=== PATIENT | female | born 1960 | race Caucasian/White ===

== ENCOUNTER 2016-11-10 05:11 | Inpatient (IN) | payer MEDICARE ==
[2016-11-10] VITALS (8 sets, daily range): BP systolic 102–131; BP diastolic 61–82
[~2016-11-10] VITALS: Ht 165.1 cm; Wt 73.5 kg
[~2016-11-10 05:11] MED LIST: ACETAMIN500 M2 PO; AMBIEN10 MG PO; AMBIEN5 MG PO; AMLODIPINE5 MG PO; AMOXICILLIN500 MG PO; ATORVASTATIN CA10 MG PO; BIAXIN500 M1 PO; BUFFERIN LOW81 MG PO; FLEXERIL PO; FLEXERIL10 MG PO; GABAPENTIN300 MG PO; HYDROCHLOROT12.5 MG PO; HYDROCO/APAP1 TA9 PO; LIPITOR10 MG PO; LORTAB 1010 MG PO; MOTRIN200 M1 OR; MOTRIN200 MG PO; NEURONTIN300 MG PO; NORVASC5 MG PO; PAROXETINE10 MG PO; PAROXETINE20 MG PO; PERCOCET 5/325M1 TAB PO; PERCOCET1 TA2 PO; PERCOCET1 TA4 PO; PREVPAC PO; PRILOSEC20 MG/CAP PO; ZANAFLEX4 M2 PO; ZANAFLEX4 MG PO
[2016-11-10] MEDS ORDERED: ALPRAZOLAM1 MG PO (05:24)
[2016-11-10] MEDS ORDERED: OXYCODONE15 MG PO (05:25)
[2016-11-10 05:53] LABS: HEMATOCRIT 46.4 % (37.0-47.0); HEMOGLOBIN 15.1 g/dl (12.0-16.0); IMMATURE GRANULOCYTES 0.3 % (0.0-1.0); MEAN CELL VOLUME 101.1 fL CALC (80.0-100.0); MEAN CORPUSCULAR HGB 32.9 pG CALC (26.0-32.0); MEAN CORPUSCULAR HGB CONC 32.5 g/L CALC (32.0-36.0); NEUT# 9.6 thou/uL (2.00-7.15); RED BLOOD COUNT 4.59 mill/uL (4.20-5.60); RED CELL DISTRI WIDTH 12.5 % (11.5-15.5)
[2016-11-10 06:03] LABS: ALBUMIN 4.2 g/dL (3.2-5.0); ALKALINE PHOSPHATASE 86 u/l (38-126); ANION GAP 14 (6-22 (CALC)); BILIRUBIN, TOTAL 0.4 mg/dL (0.0-1.4); BUN 7 mg/dL (7-17); BUN/CREATININE RATIO 10 (12-20 (CALC)); CALCIUM 8.9 mg/dL (8.4-10.2); CARBON DIOXIDE 32 mmol/l (22-30); CHLORIDE 103 mmol/l (95-108); CREATININE 0.7 mg/dL (0.5-1.0); GFR > 60 ML/MIN (>=60 (CALC)); GFR FOR AFR.AMER. > 60 ML/MIN (>=60 (CALC)); GLUCOSE 149 mg/dL (65-105); POTASSIUM 4.1 mmol/l (3.5-5.1); SGOT/AST 45 u/l (14-36); SGPT/ALT 33 u/l (9-52); SODIUM 145 mmol/l (137-146); TOTAL PROTEIN 7.3 g/dL (6.3-8.2)
[2016-11-10 06:22] LABS: MYOGLOBIN 1481 ng/mL (0 - 62)
[2016-11-10 07:42] LABS: URINE BILIRUBIN - DIPSTICK NEGATIVE (NEGATIVE); URINE BLOOD DIPSTICK NEGATIVE (NEGATIVE); URINE CLARITY CLEAR; URINE COLOR YELLOW; URINE GLUCOSE - DIPSTICK NEGATIVE (NEGATIVE); URINE KETONE NEGATIVE (NEGATIVE); URINE LEUK ESTERASE NEGATIVE (NEGATIVE); URINE NITRITE - DIPSTICK NEGATIVE (Negative); URINE PH 5.5 (4.5-8.0); URINE PROTEIN - DIPSTICK NEGATIVE (NEG-TRACE); URINE UROBILINOGEN - DIPSTICK 0.2 E.U./dL (0.2)
[2016-11-10 07:46] LABS: BARBITURATES NEGATIVE (NEGATIVE); COCAINE NEGATIVE (NEGATIVE); METHADONE NEGATIVE (NEGATIVE); OXCYCODONE POSITIVE (NEGATIVE); TETRAHYDROCANNABIONOL NEGATIVE (NEGATIVE); TRICYLIC ANTIDEPRESSANTS NEGATIVE (NEGATIVE)
[2016-11-10] MEDS ORDERED: ZYRTEC10 MG PO (07:54)
[2016-11-10] MEDS ORDERED: AUGMENTIN875TAB PO (12:28)
[2016-11-10] MEDS ORDERED: MEDDOSEPAK PO (12:28)
== END 2016-11-10 14:15 | disposition home or self-care (01) | DRG 91 ==
LOC: ED 05:11 → ED-I 07:45 → ED 07:59 → ICU 08:00
PROVIDERS: Emergency Medicine; Family Medicine; ADMIT Internal Medicine; ATTEND Internal Medicine
PROC: 5A09357 Assistance with Respiratory Ventilation, Less than 24 Consecutive Hours, Continuous Positive Airway Pressure (ICD-10-PCS; principal; 2016-11-10)
DX: G92 Toxic encephalopathy (principal); J96.02 Acute respiratory failure with hypercapnia; T45.0X5A Adverse effect of antiallergic and antiemetic drugs, initial encounter; G62.9 Polyneuropathy, unspecified; I10 Essential (primary) hypertension; M54.30 Sciatica, unspecified side; F41.1 Generalized anxiety disorder; M15.9 Polyosteoarthritis, unspecified; E78.5 Hyperlipidemia, unspecified; F17.210 Nicotine dependence, cigarettes, uncomplicated; G89.4 Chronic pain syndrome; J01.00 Acute maxillary sinusitis, unspecified; Y92.009 Unspecified place in unspecified non-institutional (private) residence as the place of occurrence of the external cause

== ENCOUNTER 2018-06-14 21:07 | Observation (INO) | payer MEDICARE ==
[~2018-06-14] VITALS: Ht 170.2 cm; Wt 77.5 kg
[~2018-06-14 21:07] MED LIST changes: +ALPRAZOLAM1 MG PO; +AUGMENTIN875TAB PO; +MEDDOSEPAK PO; +OXYCODONE15 MG PO; +ZYRTEC10 MG PO
[2018-06-14] MEDS ORDERED: TRAZODONE50 MG PO (21:21)
[2018-06-14 21:48] LABS: URINE BILIRUBIN - DIPSTICK NEGATIVE (NEGATIVE); URINE BLOOD DIPSTICK NEGATIVE (NEGATIVE); URINE COLOR YELLOW; URINE GLUCOSE - DIPSTICK NEGATIVE (NEGATIVE); URINE KETONE NEGATIVE (NEGATIVE); URINE LEUK ESTERASE NEGATIVE (NEGATIVE); URINE NITRITE - DIPSTICK NEGATIVE (Negative); URINE PH 5.5 (4.5-8.0); URINE PROTEIN - DIPSTICK NEGATIVE (NEG-TRACE); URINE SPECIFIC GRAVITY <=1.005; URINE UROBILINOGEN - DIPSTICK 0.2 E.U./dL (0.2)
[2018-06-14 21:49] LABS: HEMATOCRIT 42.9 % (37.0-47.0); HEMOGLOBIN 14.2 g/dl (12.0-16.0); IMMATURE GRANULOCYTES 0.4 % (0.0-5.0); MEAN CELL VOLUME 100.5 fL CALC (80.0-100.0); MEAN CORPUSCULAR HGB 33.3 pG CALC (26.0-32.0); MEAN CORPUSCULAR HGB CONC 33.1 g/L CALC (32.0-36.0); NEUT# 4.12 thou/uL (2.00-7.15); RED BLOOD COUNT 4.27 mill/uL (4.20-5.60); RED CELL DISTRI WIDTH 12.7 % (11.5-15.5)
[2018-06-14 22:05] LABS: ALBUMIN 4.1 g/dL (3.2-5.0); ALKALINE PHOSPHATASE 69 u/l (38-126); ANION GAP 13 (6-22 (CALC)); BUN 11 mg/dL (7-17); BUN/CREATININE RATIO 13 (12-20 (CALC)); CARBON DIOXIDE 28 mmol/l (22-30); CHLORIDE 100 mmol/l (95-108); CREATININE 0.9 mg/dL (0.5-1.0); GFR > 60 ML/MIN (>=60 (CALC)); GFR FOR AFR.AMER. > 60 ML/MIN (>=60 (CALC)); POTASSIUM 4.1 mmol/l (3.5-5.1); SGOT/AST 23 u/l (14-36); SODIUM 138 mmol/l (137-146); TOTAL PROTEIN 6.4 g/dL (6.3-8.2)
[2018-06-14 22:06] LABS: ACT PARTIAL THROMBO TIME 24.7 SECONDS (20.0-32.5); INTERNATIONAL NORMALIZED RATIO 0.9 RATIO (0.7-1.3); PROTHROMBIN TIME 9.8 SECONDS (9.0-12.5)
[2018-06-14 22:08] LABS: BILIRUBIN, TOTAL 0.2 mg/dL (0.0-1.4)
[2018-06-14 22:17] LABS: MYOGLOBIN 17 ng/mL (0 - 62)
[2018-06-15 01:00] VITALS: BP 111/74
[2018-06-15 03:00] VITALS: BP 101/80
[2018-06-15 05:00] VITALS: BP 107/71
[2018-06-15 07:31] VITALS: BP 109/77
[2018-06-15 08:00] VITALS: BP 110/76
== END 2018-06-15 10:55 | disposition home or self-care (01) ==
LOC: ED 21:07 → ED-I 21:30 → ED 06-15 00:27 → ICU 06-15 00:28
PROVIDERS: Emergency Medicine; ADMIT Internal Medicine Nephrology; ATTEND Internal Medicine Nephrology
DX: R07.89 Other chest pain (principal); I10 Essential (primary) hypertension; E78.5 Hyperlipidemia, unspecified; G62.9 Polyneuropathy, unspecified; F41.1 Generalized anxiety disorder; F32.9 Major depressive disorder, single episode, unspecified; M54.30 Sciatica, unspecified side; M48.00 Spinal stenosis, site unspecified; F17.210 Nicotine dependence, cigarettes, uncomplicated; Z96.651 Presence of right artificial knee joint; R61 Generalized hyperhidrosis

== ENCOUNTER 2021-01-27 12:36 | Observation (INO) | payer MEDICARE ==
[~2021-01-27] VITALS: Ht 170.2 cm; Wt 54.0 kg
[~2021-01-27 12:36] MED LIST changes: +OXYCODONE10 M1 PO; -OXYCODONE15 MG PO; +TRAZODONE50 MG PO
[2021-01-27 13:25] LABS: HEMATOCRIT 44.3 % (37.0-47.0); HEMOGLOBIN 14.3 g/dl (12.0-16.0); IMMATURE GRANULOCYTES 0.1 % (0.0-5.0); MEAN CELL VOLUME 101.1 fL CALC (80.0-100.0); MEAN CORPUSCULAR HGB 32.6 pG CALC (26.0-32.0); MEAN CORPUSCULAR HGB CONC 32.3 g/dL CAL (32.0-36.0); NEUT# 4.53 thou/uL (2.00-7.15); RED BLOOD COUNT 4.38 mill/uL (4.20-5.60); RED CELL DISTRI WIDTH 12.7 % (11.5-15.5)
[2021-01-27 13:42] LABS: ALKALINE PHOSPHATASE 79 u/l (38-126); AMYLASE 54 u/l (30-110); ANION GAP 10 (6-22 (CALC)); BUN 7 mg/dL (8-23); BUN/CREATININE RATIO 10 (12-20 (CALC)); CARBON DIOXIDE 27 mmol/l (22-30); CHLORIDE 103 mmol/l (95-108); CREATININE 0.8 mg/dL (0.5-1.0); D-DIMER 0.55 mg/L (0.19-0.60); GFR > 60 ML/MIN (>=60 (CALC)); GFR FOR AFR.AMER. > 60 ML/MIN (>=60 (CALC)); LIPASE 30 u/l (23-300); POTASSIUM 3.5 mmol/l (3.5-5.1); SGOT/AST 22 u/l (9-36); SODIUM 137 mmol/l (137-146); TOTAL PROTEIN 7.3 g/dL (6.3-8.2)
[2021-01-27 13:45] LABS: ACT PARTIAL THROMBO TIME 22.8 SECONDS (20.0-32.5); PROTHROMBIN TIME 10.4 SECONDS (9.0-12.5)
[2021-01-27 13:45] LABS: URINE BILIRUBIN - DIPSTICK NEGATIVE (NEGATIVE); URINE BLOOD DIPSTICK NEGATIVE (NEGATIVE); URINE COLOR YELLOW; URINE GLUCOSE - DIPSTICK NEGATIVE (NEGATIVE); URINE KETONE 15 mg/dL (NEGATIVE); URINE LEUK ESTERASE TRACE (NEGATIVE); URINE PROTEIN - DIPSTICK NEGATIVE (NEG-TRACE); URINE SPECIFIC GRAVITY <=1.005; URINE UROBILINOGEN - DIPSTICK 0.2 E.U./dL (0.2)
[2021-01-27 13:48] LABS: URINE NITRITE - DIPSTICK POSITIVE (Negative)
[2021-01-27 13:52] LABS: BILIRUBIN, TOTAL 0.5 mg/dL (0.0-1.4)
[2021-01-27 13:55] LABS: URINE RBC 0-2 RBC/hpf (0-5)
[2021-01-27 13:56] LABS: URINE BACTERIA FEW hpf; URINE SQUAMOUS EPITHELIAL CELL FEW EPI/hpf (0-FEW)
[2021-01-27 18:15] VITALS: BP 111/76
[2021-01-28 00:02] VITALS: BP 109/73
[2021-01-28 04:05] VITALS: BP 100/58
[2021-01-28 06:20] LABS: HEMATOCRIT 40.6 % (37.0-47.0); MEAN CELL VOLUME 103.8 fL CALC (80.0-100.0); MEAN CORPUSCULAR HGB 33.2 pG CALC (26.0-32.0); NEUT# 3.31 thou/uL (2.00-7.15); RED BLOOD COUNT 3.91 mill/uL (4.20-5.60); RED CELL DISTRI WIDTH 12.9 % (11.5-15.5)
[2021-01-28 06:32] LABS: ANION GAP 9 (6-22 (CALC)); BUN 6 mg/dL (8-23); BUN/CREATININE RATIO 8 (12-20 (CALC)); CARBON DIOXIDE 23 mmol/l (22-30); CHLORIDE 112 mmol/l (95-108); CREATININE 0.7 mg/dL (0.5-1.0); GFR > 60 ML/MIN (>=60 (CALC)); GFR FOR AFR.AMER. > 60 ML/MIN (>=60 (CALC)); POTASSIUM 3.7 mmol/l (3.5-5.1); SODIUM 141 mmol/l (137-146)
[2021-01-28 07:10] VITALS: BP 107/66
[2021-01-28] MEDS ORDERED: BUSPAR5 MG PO (07:40)
[2021-01-28] MEDS ORDERED: CRESTOR10 MG PO (07:41)
[2021-01-28] MEDS ORDERED: TIZANIDINE4 MG PO (07:41)
[2021-01-28] MEDS ORDERED: ALLERGY RE50 MCG/ACT (07:42)
== END 2021-01-28 09:56 | disposition home or self-care (01) ==
LOC: ED 12:36 → ED-I 16:00 → ED 16:37 → MS2 16:38
PROVIDERS: ADMIT Internal Medicine; ATTEND Internal Medicine
DX: R07.89 Other chest pain (principal); G62.9 Polyneuropathy, unspecified; E78.5 Hyperlipidemia, unspecified; F41.1 Generalized anxiety disorder; M15.9 Polyosteoarthritis, unspecified; F17.200 Nicotine dependence, unspecified, uncomplicated; Z20.822 Contact with and (suspected) exposure to COVID-19; Z23 Encounter for immunization
CPT/HCPCS: Q9967